=== PATIENT | female | born 1960 | race Caucasian/White ===

== ENCOUNTER 2024-02-22 16:34 | Emergency (ER) | payer SELFPAY ==
[~2024-02-22] VITALS: Ht 157.5 cm; Wt 57.0 kg
[2024-02-22 16:46] VITALS: TEMP 98.2; O2SAT 100
[2024-02-22 18:46] VITALS: BP 173/72; PULSE 74; RESP 16
== END 2024-02-22 18:48 | disposition home or self-care (01) ==
LOC: ER 16:34
DX: H53.8 Other visual disturbances (principal); H43.812 Vitreous degeneration, left eye; H43.12 Vitreous hemorrhage, left eye; E11.9 Type 2 diabetes mellitus without complications; E78.00 Pure hypercholesterolemia, unspecified; I10 Essential (primary) hypertension
CPT/HCPCS: 82962; 99284